=== PATIENT | female | born 1995 | race Caucasian/White ===

== ENCOUNTER 2023-02-12 12:55 | Outpatient (RCR) | payer MEDICARE, MEDICAID | END 2023-02-13 | disposition home or self-care (01) | PROVIDERS: ATTEND Pediatrics | DX: M25.561 Pain in right knee (principal) ==

== ENCOUNTER 2023-02-15 12:56 | Outpatient (RCR) | payer MEDICARE, MEDICAID | END 2023-02-15 13:29 | disposition home or self-care (01) | PROVIDERS: ATTEND Pediatrics | DX: M25.561 Pain in right knee (principal) ==